=== PATIENT | male | born 1940 | race Caucasian/White ===

== ENCOUNTER 2017-02-22 09:59 | Emergency (ER) | payer MEDICARE ==
[2016-06-17 09:07] VITALS: BMI 34.3
[~2017-02-22 09:59] MED LIST: ASPIRIN81 MG PO; CORDARONE200 MG PO; ELIQUIS5 MG PO; FLOMAX0.4 MG PO; HEMOCYTE PLUS C1 CAP PO; K-DUR20 MEQ PO; LOPRESSOR25 MG PO; MAXZIDE-25 MG T1 TAB PO; ULTRAM50 MG PO; XALATAN 0.0052.5 ML EACH EYE
[2017-02-22 10:59] LABS: BASOPHILS 0.3 % (0-2); EOSINOPHILS 1.4 % (0-7); HEMATOCRIT 48.2 % (42.0-54.0); HEMOGLOBIN 16.2 g/dL (13.5-17.5); IMMATURE GRANULOCYTES 0.2 % (0-5); LYMPHOCYTES 21.5 % (15-50); MCH 28.8 pg (26.0-34.0); MCHC 33.6 g/dL (31.0-37.0); MCV 85.8 fL (80.0-100.0); MEAN PLATELET VOLUME 9.5 fL (7.4-10.4); MONOCYTES 9.5 % (2-11); NEUTROPHILS 67.1 % (40-80); PLATELET COUNT 188 10x3/uL (130-400); RBC 5.62 10x6/uL (4.20-6.10); RDW 14.7 % (11.5-14.5); WBC 8.8 10x3/uL (4.8-10.8)
[2017-02-22 11:25] LABS: ALBUMIN 3.7 g/dL (3.4-5.0); ALKALINE PHOSPHATASE 130 U/L (46-116); ALT (SGPT) 22 U/L (10-68); BILIRUBIN - TOTAL 0.92 mg/dL (0.2-1.3); CALC OSMOLALITY 282 mosm/kg (275-300); CALCIUM 8.7 mg/dL (8.5-10.1); CARBON DIOXIDE 28.5 mmol/L (21.0-32.0); CHLORIDE - SERUM 105 mmol/L (98-107); GLUCOSE 103 mg/dL (74-106); POTASSIUM - SERUM 4.2 mmol/L (3.5-5.1); SODIUM 142 mmol/L (136-145); UREA NITROGEN 13 mg/dL (7-18); eGFR NON AFRICAN AMERICAN 77 mL/min (90-120)
[2017-02-22 11:29] LABS: CREATINE KINASE 67 UL (21-232)
[2017-02-22 11:31] LABS: TROPONIN-I < 0.017 ng/mL (0.000-0.060)
== END 2017-02-22 15:10 | disposition home or self-care (01) ==
LOC: D.ER 09:59
PROVIDERS: Emergency Medicine
DX: M54.9 Dorsalgia, unspecified (principal)

== ENCOUNTER 2018-07-12 17:50 | Observation (INO) | payer MEDICARE ==
[~2018-07-12] VITALS: Ht 185.4 cm; Wt 96.0 kg
--- NOTE | ~2018-07-12 | OP ---
PATIENT NAME: EVELIN NAM MEDICAL RECORD: [id number] :40 LOCATION:D.M2 D.2102 ADMISSION DATE:07/12/18 SURGEON: MARILYN LANDON MD DATE OF OPERATION: 07/13/2018 PROCEDURES: 1. PTCA stent left circumflex. 2. Left heart catheterization. 3. Selective coronary angiography. 4. Vein graft angiography. 5. ALLEN angiography. INDICATION: Angina and coronary artery disease. PROCEDURE IN DETAIL: After informed consent was obtained and after a detailed description of risks, benefits as well as alternative therapies, the patient elected to proceed with angiogram and angioplasty. The right femoral area was prepped and draped in normal sterile fashion. The right femoral artery was cannulated via modified Seldinger technique with placement of 6-Korean sheath. All catheters exchanged through this sheath. FINDINGS: The left ventriculogram was performed in standard 30-degree MTZ view, reveals good cardiac wall motion throughout all segments. Overall ejection fraction estimated 60%. SELECTIVE CORONARY ANGIOGRAPHY: 1. Left main has no significant angiographic disease. 2. Left anterior descending has 80% stenosis in the mid vessel, 100% stenosis of the diagonal. 3. ALLEN to the LAD is widely patent. Distal LAD is widely patent. 4. Vein graft to the diagonal is widely patent. The distal diagonal is widely patent. 5. The left circumflex has 70% stenosis of the first obtuse marginal. 6. Vein graft to the first obtuse marginal was closed. 7. Right coronary artery is small, nondominant. PTCA STENT OF THE LEFT CIRCUMFLEX FIRST OBTUSE MARGINAL: The stent used was a 3.0 x 15 mm Integrity. Result was 0% residual stenosis. OVERALL IMPRESSION: Successful percutaneous transluminal coronary angioplasty stent of the left circumflex going from 70% initial stenosis to 0% residual. TRANSINT:[id number] Voice Confirmation ID: [id number] DOCUMENT ID: [id number] MARILYN LANDON MD at 1729 CC: [id number] DICTATION DATE: 07/13/18 1304 MASTER GLAZIER: 07/13/18 1313 DIS IN 07/13/18 [address] [place] [address]
--- NOTE | ~2018-07-12 | HEMODYNAMI ---
PATIENT:EVELIN NAM MEDICAL RECORD: [id number] : 40 [id number] ADMISSION DATE: 07/12/18 Generatedon:07/13/201813:01 Patient name: EVELIN NAM Patient #: [id number] SSN: : 1940 Date of study: 07/13/2018 Page: Of Hemodynamic Procedure Report Patient Data Patient Demographics Procedure consent was obtained First Name: EVELIN Gender: Male Last Name: CYRIL : 1940 Middle Initial: W Age: 77 year(s) Patient #: [id number] Race: Additional ID: [id number] Contact details [address]: [address] [place] [address] State: [place] City: [place] Zip code: [address] Past Medical History Allergies: No known allergies Admission Admission Data Admission Date: 07/12/2018 Admission Time: 21:02 Admit Source: Other Room #: D.2102 Lab Results Lab Result Date: 07/13/2018 Lab Result Time: 5:32 Biochemistry Name Units Result Min Max BUN mg/dl 12 --(-*--)-- 7 18 Creatinine mg/dl 0.9 --(-*--)-- 0.6 1.3 CBC Name Units Result Min Max Hematocrit % 41.3 -*(----)-- 42 54 Hemoglobin g/dl 13.9 --(*---)-- 13.5 17.5 Procedure Procedure Types Cath Procedure Diagnostic Procedure LHC LHC w/Coronaries w/Grafts PCI Procedure Coronary Stent Coronary Stent Initial Procedure Description Procedure Date Procedure Date: 07/13/2018 Procedure Start Time: 12:44 Procedure End Time: 12:59 Procedure Staff Name Function Silviano Justice MD Performing Physician Ravin Neumann RT Monitor Yuliya Campuzano RT Scrub Osmel Zimmerman RN Nurse Procedure Data Cath Procedure Fluoroscopy Diagnostic fluoroscopy Total fluoroscopy Time: 3.6 time: 3.6 min min Diagnostic fluoroscopy Total fluoroscopy dose: 880 dose: 880 mGy mGy Contrast Material Contrast Material Type Amount (ml) Isovue 300 109 Entry Location Entry Primary Successful Side Size Upsize Upsize Entry Closure Succes sful Closure Location (Fr) 1 (Fr) 2 (Fr) Remarks Device Remarks Femoral Right 5 Fr 6 Fr Exoseal artery Short Estimated blood loss: 10 ml Diagnostic catheters Device Type Used For End Catheter Placement MULTIPACK Pigtail 5 Fr Procedure catheter MULTIPACK JL 4.0 5Fr Procedure catheter MULTIPACK 3DRC 5Fr Procedure catheter Procedure Complications No complications Procedure Medications Medication Administration Route Dosage Oxygen etCO2 Nasal cannula 2 l/min Heparin Flush Bag added to field 2 bags (1000units/500ml NS) 0.9% NaCl I.V. 100 ml/hr Fentanyl I.V. 50 mcg Versed I.V. 1 mg Heparin Bolus I.V. 4000 units Fentanyl I.V. 50 mcg Versed I.V. 1 mg Hemodynamics Rest HGB: 13.9 (g/dl) Heart Rate: 64 (bpm) Snapshots Pre Cath Intra NCS Post Cath Vital Signs Time Heart Resp SPO2 etCO2 NIBP (mmHg) Rhythm Pain Sedation Rate (ipm) (%) (mmHg) Status Level (bpm) 12:33:05 64 17 98 31.4 170/76(134) NSR 0 (11) 10(A) , No pain 12:37:31 62 17 99 33.7 160/70(131) NSR 0 (11) 10(A) , No pain 12:42:00 60 16 95 0 147/64(112) NSR 0 (11) 10(A) , No pain 12:46:22 62 16 93 0 146/66(108) NSR 0 (11) 9(A) , No pain 12:50:46 63 16 93 0 140/61(103) NSR 0 (11) 9(A) , No pain 12:55:06 62 16 95 0 148/63(107) NSR 0 (11) 9(A) , No pain 12:59:30 62 17 96 0 140/61(111) NSR 0 (11) 9(A) , No pain Medications Time Medication Route Dose Verified Delivered Reason Notes Effectiveness by by 12:31:56 Oxygen etCO2 2 Silviano Bolivar Per physician Nasal l/min Vinh Zimmerman RN cannula 12:32:04 Heparin Flush added 2 Silviano Bolivar Per physician Bag to bags Vinh Zimmerman RN (1000units/500ml field NS) 12:32:17 0.9% NaCl I.V. 100 Silviano Bolivar Per physician ml/hr Vinh Zimmerman RN 12:42:49 Fentanyl I.V. 50 Silviaon Bolivar for sedation mcg Vinh Zimmerman RN 12:42:56 Versed I.V. 1 mg Silviano Bolivar for sedation Vinh Zimmerman RN 12:53:30 Heparin Bolus I.V. 4000 Silviano Bolivar for units Vinh Zimmerman RN anticoagulation 12:53:38 Fentanyl I.V. 50 Silviano Bolivar for sedation mcg Vinh Zimmerman RN 12:53:42 Versed I.V. 1 mg Silviano Bolivar for sedation Vinh Zimmerman RN Procedure Log Time Note 12:10:41 Osmel Zimmerman RN sent for patient. Start room use. 12:20:25 Informed consent obtained and on chart 12:20:27 Admit Source: Other 12:20:39 Diagnostic Cath status Elective 12:20:42 Time tracking: Regular hours (M-F 7:00 - 5:00) 12:20:45 Plan of Care:Hemodynamics will remain stable., Cardiac rhythm will remain stable., Comfort level will be maintained., Respiratory function will remain adequate., Patient/ family verbilizes understanding of procedure., Procedure tolerated without complication., Recovers from procedure without complications.. 12:21:39 Lab Result : Hemoglobin 13.9 g/dl 12:21:39 Lab Result : Hematocrit 41.3 % 12:21:39 Lab Result : BUN 12 mg/dl 12:21:39 Lab Result : Creatinine 0.9 mg/dl 12:23:34 H&P Date Dictated: 07/12/2018 Within 30 days and on chart.. 12:24:15 Patient received from Med II to CCL 2 Alert and oriented. Tansferred to table in Supine position. 12:24:16 Warm blankets applied, and elda hugger turned on for patient comfort. 12:24:17 Correct patient and procedure confirmed by team. 12:24:17 ECG and BP/O2 sat monitors applied to patient. 12:24:18 Pre-procedure instructions explained to patient. 12:24:18 Pre-op teaching completed and patient verbalized understanding. 12:24:19 Family in waiting room. 12:24:21 Patient NPO since Midnight. 12:24:27 Patient allergic to No known allergies 12::47 Vital chart was started 12::56 Oxygen 2 l/min etCO2 Nasal cannula was administered by Osmel Zimmerman RN; Per physician; 12:32:04 Heparin Flush Bag (1000units/500ml NS) 2 bags added to field was administered by Osmel Zimmerman RN; Per physician; 12:32:17 0.9% NaCl 100 ml/hr I.V. was administered by Osmel Zimmerman RN; Per physician; 12:35:50 Baseline sample Acquired. 12:35:55 Rhythm: sinus rhythm 12:35:56 Full Disclosure recording started 12:35:59 Is the patient allergic to Iodine/contrast media? No. 12:36:01 Patient diabetic? No. 12:36:03 Previous problem with sedation/anesthesia? No ? 12:36:04 Snore? No 12:36:05 Sleep apnea? No 12:36:06 Deviated septum? No 12:36:07 Opens mouth fully? Yes 12:36:07 Sticks out tongue? Yes 12:36:09 Airway obstruction? No ? 12:36:12 Dentures? Yes in tight 12:36:14 Pre procedure: right dorsailis pedis pulse 2+ Normal; easily identifiable; not easily obliterated 12:36:16 Patient pain scale 0/10 ?. 12:36:19 IV patent on arrival in left forearm with 0.9% NaCl at [facility]. 12:36:21 Lab results completed and on chart. 12:36:24 Right groin area was prepped with chlora-prep and draped in sterile fashion 12:36:24 Alarms reviewed by R. N. 12:36:25 Sharps counted by scrub and verified by R.N. 12:36:27 Use device set Femoral Dx 12:36:28 ACIST Syringe (18036) opened to sterile field. 12:36:28 Bag Decanter () opened to sterile field. 12:36:30 Medline Cath Pack ([id number]) opened to sterile field. 12:36:30 ACIST Hand Control (55765) opened to sterile field. 12:36:31 ACIST Manifold (60443) opened to sterile field. 12:36:32 Tegaderm 4 x 4 (1626W) opened to sterile field. 12:36:33 SHEATH Prelude 5Fr 0.035 (KXQ-6E-18-035) opened to sterile field. 12:36:34 DIAGNOSTIC Multipack 5Fr catheter set (XV6880) opened to sterile field. 12:36:34 DIAGNOSTIC WIRE .035 260cm J wire (932339) opened to sterile field. 12:36:42 Physician arrived 12::42 --------ALL STOP TIME OUT------ 12:36:43 Final Timeout: patient, procedure, and site verified with staff and physician. All members of the team are in agreement. 12:36:45 Right groin site verified by team. 12:36:47 Physical assessment completed. ASA score P 2 - A patient with mild systemic disease as per Silviano Justice MD. 12:36:48 Sedation plan: IV Moderate Sedation Medication:Versed, Fentanyl 12:42:49 Fentanyl 50 mcg I.V. was administered by Osmel Zimmerman RN; for sedation; 12:42:56 Versed 1 mg I.V. was administered by Osmel Zimmerman RN; for sedation; 12:44:46 Procedure started. 12:44:49 Local anesthetic to right femoral artery with Lidocaine 2% by Silviano Justice MD.INITIAL ACCESS ONLY 12:45:09 A 5 Fr sheath was inserted into the Right Femoral artery 12:45:33 A MULTIPACK Pigtail 5 Fr catheter was advanced over the wire and used for Procedure. 12:45:34 Zero performed for pressure channel P1 12:45:39 Zero performed for pressure channel P1 12:45:48 LV gram done using MTZ 12:45:50 Injector settings: Ml/sec: 10, Volume: 20, 12:45:56 EF : 55 % 12:45:58 Zero performed for pressure channel P1 12:46:01 Zero performed for pressure channel P1 12:46:11 Catheter exchanged over wire. 12:46:16 A MULTIPACK JL 4.0 5Fr catheter was advanced over the wire and used for Procedure. 12:46:54 LCA angiography performed. 12:47:57 Catheter exchanged over wire. 12:48:03 A MULTIPACK 3DRC 5Fr catheter was advanced over the wire and used for Procedure. 12:48:25 ALLEN to LAD angiography performed. 12:49:10 RCA angiography performed. 12:49:29 SVG to Diag angiography performed. 12:52:55 Catheter removed. 12:53:08 CHOICE PT Extra Support 182cm wire ([id number]) opened to sterile field. 12:53:09 INFLATOR Merit BasixCompak (WO8817) opened to sterile field. 12:53:10 SHEATH Prelude 6Fr 0.035 (NXW-6X-99-035) opened to sterile field. 12:53:18 GUIDE 6FR XBLAD 3.5 catheter ([id number]) opened to sterile field. 12:53:26 Sheath upsized to a 6 Fr Short. 12:53:30 Heparin Bolus 4000 units I.V. was administered by Osmel Zimmerman RN; for anticoagulation; 12:53:33 6 Fr xblad 3.5 guide catheter was inserted over the wire 12:53:36 choice pt es wire advanced. 12:53:38 Fentanyl 50 mcg I.V. was administered by Osmel Zimmerman RN; for sedation; 12:53:42 Versed 1 mg I.V. was administered by Osmel Zimmerman RN; for sedation; 12:55:12 Wire advanced across lesion. 12:56:06 Place stent Inflation Number: 1 A INTEGRITY RX 3.0 x 15 stent ([id number]) was prepped and advanced across the 1st Ob Halina. The stent was deployed at 13 AURELI[address]O for 0:10 (min:sec). 12:56:29 Stent catheter was removed intact over wire. 12:56:29 Wire removed. 12:56:30 Guide catheter removed. 12:56:35 EXOSEAL 6Fr (EX600) opened to sterile field. 12:56:41 Sheath removed intact; hemostasis achieved with Exoseal to the Right Femoral artery. 12:56:42 Procedure ended.(Physican Out) 12:58:08 Fluoroscopy time 03.60 minutes. 12:58:14 Flurop Dose total: 880 12:58:14 Fluoroscopy dose: 880 mGy 12:58:18 Contrast amount:Isovue 300 109ml. 12:58:19 Sharps counted by scrub and verified by R.N. 12:58:20 Insertion/operative site no bleeding no hematoma. 12:58:25 Post-op/insertion site Right Femoral artery dressed using a 4 x 4 and Tegaderm. 12:58:45 Post right femoral artery:stable, soft, clean and dry 12:58:47 Post Procedure Pulses reassessed and unchanged 12:58:49 Post-procedure physical assessment completed. ASA score P 2 - A patient with mild systemic disease as per Silviano Justice MD. 12:58:50 Post procedure rhythm: unchanged. 12:58:53 Estimated blood loss: 10 ml 12:58:54 Post procedure instruction explained to patient.Patient verbalizes understanding. 12:58:54 Patient needs reinforcement of post procedure teaching. 12:59:03 Procedure type changed to Cath procedure, Diagnostic procedure, LHC, LHC w/Coronaries w/Grafts, PCI procedure, Coronary Stent, Coronary Stent Initial 12:59:31 Procedure and supply charges have been captured, reviewed, submitted and are correct. 12:59:32 Procedure Complication : No complications 12:59:34 Vital chart was stopped 12:59:35 See physician's report for complete and final results. 12:59:36 Report given to PCU. 12:59:51 Patient transfered to PCU with Stretcher. 12:59:54 Procedure ended. 12:59:54 Full Disclosure recording stopped 13:00:04 End room use (Document Last) Intervention Summary Intervention Notes Time ActionType Lesion and Equipment Action# Pressure Duration Attributes Used 12:56:06 Place stent 1st Ob Halina INTEGRITY RX 1 13 00:10 3.0 x 15 stent ([id number]) Device Usage Item Name Manufacture Quantity Catalog Number Hospital Part Current Minimal Lot# / Charge Number Stock Stock Serial# Code ACIST Syringe Acist 1 70262 218372 975435 267580 20 (79989) [employer] Bag Decanter Microtek 1 2001S 885301 86492 214160 5 (2001S) Medical Inc. Medline Cath Cardinal 1 [id number] 641609 26355 367649 5 Pack Health ([id number]) ACIST Hand Acist 1 21053 811005 762425 908543 5 Control (40003) [employer] Inc ACIST Manifold Acist 1 34247 900567 875362 642554 5 (05258) Medical Systems Inc Tegaderm 4 x 4 3M 1 1626W 743190 289820 335804 5 (1626W) SHEATH Prelude Merit 1 [id number]-0L-[id number] 307734 316608 087151 5 5Fr 0.035 Medical (KWH-1S-48-035) DIAGNOSTIC Cardinal 1 AI9073 479476 69965 481574 30 Multipack 5Fr Health catheter set ([id number]) DIAGNOSTIC WIRE St Brock 1 749518 568860 394733 447204 30 .035 260cm J wire (975039) MULTIPACK Cardinal 1 833780 5 Pigtail 5 Fr Health catheter MULTIPACK JL Cardinal 1 955428 5 4.0 5Fr Health catheter MULTIPACK 3DRC Cardinal 1 473415 5 5Fr catheter Health CHOICE PT Extra [place] 1 [id number] 041609 782270 902150 5 Support 182cm Scientific wire ([id number]) INFLATOR Merit Merit 1 HE1778 385275 191735 371634 15 BasixProperty Partner Medical ([id number]) SHEATH Prelude Merit 1 OFW-6W-34-35 043087 9519022 896980 5 6Fr 0.035 Medical (EDC-8O-35-035) GUIDE 6FR XBLAD Cardinal 1 [id number] 160887 304495 216842 10 3.5 catheter Health (17861718) INTEGRITY RX Medtronic 1 [id number] 202032 967529 718117 5 [id number] 3.0 x 15 stent ([id number]) EXOSEAL 6Fr Cardinal 1 EX600 538894 916320 857501 10 (EX600) Health Signature Audit [place] Stage Time Signature Unsigned Intra-Procedure 07/13/2018 Ravin Neumann 1:01:06 PM RT(R) Signatures Monitor : Ravin Neumann RT Signature : Date : Time : [facility] [address] [place] [address]
[2018-07-12 18:35] LABS: BASOPHILS 0.4 % (0-2); EOSINOPHILS 2.4 % (0-7); HEMATOCRIT 44.9 % (42.0-54.0); HEMOGLOBIN 15.5 g/dL (13.5-17.5); IMMATURE GRANULOCYTES 0.1 % (0-5); LYMPHOCYTES 22.2 % (15-50); MCHC 34.5 g/dL (31.0-37.0); MCV 86.8 fL (80.0-100.0); MEAN PLATELET VOLUME 9.2 fL (7.4-10.4); MONOCYTES 9.3 % (2-11); NEUTROPHILS 65.6 % (40-80); PLATELET COUNT 166 10x3/uL (130-400); RBC 5.17 10x6/uL (4.20-6.10); RDW 13.7 % (11.5-14.5); WBC 7.4 10x3/uL (4.8-10.8)
[2018-07-12 18:50] LABS: ALBUMIN 3.2 g/dL (3.4-5.0); ALKALINE PHOSPHATASE 105 U/L (46-116); ALT (SGPT) 25 U/L (10-68); BILIRUBIN - TOTAL 0.74 mg/dL (0.2-1.3); CALC OSMOLALITY 287 mosm/kg (275-300); CALCIUM 8.6 mg/dL (8.5-10.1); CARBON DIOXIDE 29.1 mmol/L (21.0-32.0); CHLORIDE - SERUM 106 mmol/L (98-107); CREATININE - SERUM 1.1 mg/dL (0.6-1.3); GLUCOSE 111 mg/dL (74-106); POTASSIUM - SERUM 3.8 mmol/L (3.5-5.1); PROTEIN - SERUM 6.7 g/dL (6.4-8.2); SODIUM 144 mmol/L (136-145); UREA NITROGEN 12 mg/dL (7-18); eGFR NON AFRICAN AMERICAN 69 mL/min (90-120)
[2018-07-12 19:11] LABS: CKMB 1.2 U/L (0.0-3.6); CREATINE KINASE 37 UL (21-232); PRO BNP 192 pg/mL (0-450)
[2018-07-12 19:12] LABS: TROPONIN-I < 0.017 ng/mL (0.000-0.060)
[2018-07-12 19:30] VITALS: BP 145/73
[2018-07-12 20:30] VITALS: BP 165/73
[2018-07-12 21:00] VITALS: BP 155/72
[2018-07-12 22:09] VITALS: BP 177/78
[2018-07-13 00:57] VITALS: BP 134/59
[2018-07-13 01:23] VITALS: Ht 185.4 cm; Wt 96.0 kg
[2018-07-13 02:32] LABS: CKMB 0.7 U/L (0.0-3.6); CREATINE KINASE 41 UL (21-232); TROPONIN-I < 0.017 ng/mL (0.000-0.060)
[2018-07-13 05:51] VITALS: BP 134/60
[2018-07-13 06:02] LABS: BASOPHILS 0.5 % (0-2); EOSINOPHILS 3.3 % (0-7); HEMATOCRIT 41.3 % (42.0-54.0); HEMOGLOBIN 13.9 g/dL (13.5-17.5); IMMATURE GRANULOCYTES 0.2 % (0-5); LYMPHOCYTES 25.6 % (15-50); MCH 29.3 pg (26.0-34.0); MCHC 33.7 g/dL (31.0-37.0); MCV 87.1 fL (80.0-100.0); MEAN PLATELET VOLUME 9.6 fL (7.4-10.4); NEUTROPHILS 58.4 % (40-80); PLATELET COUNT 165 10x3/uL (130-400); RBC 4.74 10x6/uL (4.20-6.10); RDW 13.8 % (11.5-14.5); WBC 6.4 10x3/uL (4.8-10.8)
[2018-07-13 07:40] LABS: CALC OSMOLALITY 280 mosm/kg (275-300); CALCIUM 7.9 mg/dL (8.5-10.1); CARBON DIOXIDE 28.2 mmol/L (21.0-32.0); CHLORIDE - SERUM 108 mmol/L (98-107); CKMB 0.7 U/L (0.0-3.6); CREATINE KINASE 30 UL (21-232); CREATININE - SERUM 0.9 mg/dL (0.6-1.3); GLUCOSE 95 mg/dL (74-106); POTASSIUM - SERUM 3.8 mmol/L (3.5-5.1); SODIUM 141 mmol/L (136-145); TROPONIN-I < 0.017 ng/mL (0.000-0.060); UREA NITROGEN 12 mg/dL (7-18); eGFR NON AFRICAN AMERICAN 87 mL/min (90-120)
[2018-07-13 11:02] VITALS: BP 127/62
[2018-07-13] MEDS ORDERED: PLAVIX75 MG PO (13:48)
[2018-07-13 15:23] LABS: CKMB 0.6 U/L (0.0-3.6); CREATINE KINASE 26 UL (21-232)
[2018-07-13 15:27] LABS: TROPONIN-I < 0.017 ng/mL (0.000-0.060)
== END 2018-07-13 16:42 | disposition home or self-care (01) ==
LOC: D.ER 17:50 → D.EDHOLD 21:02 → D.M2 21:02 → OBSVTIME 21:02 → D.M2 22:48
PROVIDERS: Family Medicine
DX: I25.119 Atherosclerotic heart disease of native coronary artery with unspecified angina pectoris (principal); Z95.1 Presence of aortocoronary bypass graft; Z72.0 Tobacco use; I10 Essential (primary) hypertension; K21.9 Gastro-esophageal reflux disease without esophagitis; I48.0 Paroxysmal atrial fibrillation

== ENCOUNTER → 2020-05-08 09:06 | Outpatient (CLI) | payer MEDICARE ==
[~2020-05-08 09:06] MED LIST changes: +PLAVIX75 MG PO
== END | disposition home or self-care (01) ==
LOC: D.HCCARDIO 09:06
PROVIDERS: ATTEND Internal Medicine Cardiovascular Disease
DX: I25.10 Atherosclerotic heart disease of native coronary artery without angina pectoris (principal)

== ENCOUNTER 2020-05-29 05:55 | Day surgery (SDC) | payer MEDICARE ==
[~2020-05-29] VITALS: Ht 185.4 cm; Wt 100.5 kg
--- NOTE | ~2020-05-29 | HEMODYNAMI ---
PATIENT:EVELIN NAM MEDICAL RECORD: [id number] : 40 LOCATION:D.CAT ADMISSION DATE: 05/29/20 Generatedon:05/29/20209:14 Patient name: EVELIN NAM Patient #: [id number] : 1940 Date of study: 05/29/2020 Page: Of Hemodynamic Procedure Report Patient Data Patient Demographics Procedure consent was obtained First Name: EVELIN Gender: Male Last Name: CYRIL : 1940 Middle Initial: W Age: 79 year(s) Patient #: [id number] Race: SSN: [id number] Additional ID: [id number] Contact details Address: [address] [place] [address] State: [place] City: [place] Zip code: [address] Past Medical History Allergies Allergen Reaction Date Comments Reported Other allergy 05/29/2020 no known allergies Admission Admission Data Admission Date: 05/29/2020 Admission Time: 5:55 Arrival Date: 05/29/2020 Arrival Time: 0:00 Admit Source: Other Insurance Payor: Medicare [facility] #: [id number] Height (in.): 73 BSA: 2.25 (m2) Height (cm.): 185.42 BMI: 29.29 (kg/m2) Weight (lbs.): 222 Weight (kg.): 100.7 Lab Results Lab Result Date: 05/29/2020 Lab Result Time: 0:00 Biochemistry Name Units Result Min Max BUN mg/dl 15 --(--*-)-- 7 18 Creatinine mg/dl 1 --(--*-)-- 0.6 1.3 eGFR ml/min 76.18419 *-(----)-- 90 120 NONAFRICAN CBC Name Units Result Min Max Hemoglobin g/dl 15.4 --(-*--)-- 13.5 17.5 Procedure Procedure Types Cath Procedure Diagnostic Procedure LHC LHC w/Coronaries w/Grafts Sedation Charges Moderate Sedation up to 15 minutes Procedure Description Procedure Date Procedure Date: 05/29/2020 Procedure Start Time: 8:52 Procedure End Time: 9:12 Procedure Staff Name Function Qasim Stafford MD Performing Physician Beatriz Ledesma RT Plastering Contractor Dulce Higgins RN Nurse Beatriz Ledesma RT Monitor Amanda Rivera RT Scrub Indication Angina Procedure Data Cath Procedure Contrast Material Contrast Material Type Amount (ml) Isovue 300 64 Entry Location Entry Primary Successful Side Size Upsize Upsize Entry Closure Succes sful Closure Location (Fr) 1 (Fr) 2 (Fr) Remarks Device Remarks Femoral Right 5 Fr Exoseal artery Estimated blood loss: 5 ml Diagnostic catheters Device Type Used For End Catheter Placement MULTIPACK JL 4.0 5Fr Left Coronary catheter Angiography DIAGNOSTIC AR MOD 5Fr Procedure Catheter ([id number]) DIAGNOSTIC IM 5Fr Procedure catheter ([id number]) MULTIPACK Pigtail 5 Fr LV Angiography catheter Procedure Complications No complications Procedure Medications Medication Administration Route Dosage 0.9% NaCl I.V. 100 ml/hr Oxygen etCO2 Nasal cannula 2 l/min Lidocaine 2% added to field 20 Heparin Flush Bag added to field 2 bags (1000units/500ml NS) Versed I.V. 2 mg Fentanyl I.V. 50 mcg Hemodynamics Rest BSA: 2.25 (m2) HGB: 15.4 (g/dl) O2 Consumption: Estimated: 247.29 (ml/min) O2 Co nsumption indexed: Estimated:109.91 (ml/min/m) Heart Rate: 58 (bpm) Pressure Samples Time Site Value (mmHg) Purpose Heart Use Rate(bpm) 9:05 LV 162/7,14 Snapshot 76 9:06 AO 162/61(101) Pullback 60 9:06 LV 172/-1,18 Pullback 60 Gradients Valve Time Site 1 Site 2 Mean SEP/DFP Peak To Heart Use (mmHg) (sec/min) Peak Rate (mmHg) (bpm) Aortic 9:06 LV AO 5 17 10 60 172/-1,18 162/61(101) Calculations Valve P-P Mean Valve Index Valve Source Name Gradient Area Flow (cm2) Aortic 10 5 10 5 Snapshots Pre Cath Intra NCS Post Cath Vital Signs Time Heart Resp SPO2 etCO2 NIBP (mmHg) Rhythm Pain Sedation Rate (ipm) (%) (mmHg) Status Level (bpm) 8:40:15 69 17 98 33 Measuring NSR 0 (11) 10(A) , No pain 8:45:55 62 14 98 21.7 157/68(121) NSR 0 (11) 10(A) , No pain 8:50:17 57 15 98 13.5 139/64(109) SB 0 (11) 10(A) , No pain 8:54:31 47 15 98 17.2 153/65(109) SB 0 (11) 9(A) , No pain 8:58:51 52 14 98 37.5 162/65(109) SB 0 (11) 9(A) , No pain 9:03:13 60 14 99 37.5 148/71(123) NSR 0 (11) 10(A) , No pain 9:07:25 60 14 99 36 157/83(132) NSR 0 (11) 10(A) , No pain 9:11:29 63 15 99 35.3 137/80(126) NSR 0 (11) 10(A) , No pain Medications Time Medication Route Dose Verified Delivered Reason Notes Effe ctiveness by by 8:36:06 0.9% NaCl I.V. 100 Qasim Dulce used for ml/hr Rivera Higgins budget counselor 8:36:12 Oxygen etCO2 2 Qasim Dulce used for Nasal l/min Rivera Higgins procedure cannula RN 8:36:17 Lidocaine 2% added 20ml Qasim Qasim for local to vial Rivera Stafford MD anesthetic field 8:36:21 Heparin Flush added 2 Qasim Qasim used for Bag to bags Rivera Stafford MD procedure (1000units/500ml field NS) 8:50:23 Versed I.V. 2 mg Qasim Dulce for Rivera Higgins sedation RN 8:50:27 Fentanyl I.V. 50 Qasim Dulce for mcg Rivera Higgins sedation structural designer Log Time Note 8:17:29 Arrival Date: 05/29/2020 12:00:00 AM 8:18:13 Insurance Payor : Medicare 8:18:14 Admit Source: Other 8:19:02 Patient Height : 73 inches 8:19:06 Patient Weight : 222 lbs 8:19:43 Lab Result : eGFR NONAFRICAN 76.38092 ml/min 8:19:43 Lab Result : Creatinine 1 mg/dl :: Lab Result : BUN 15 mg/dl :: Lab Result : Hemoglobin 15.4 g/dl 8::23 Diagnostic Cath Status : Elective 8:21:04 Indication : Angina 8::21 Procedure Status Elective Heart Cath (OP). 8::23 Beatriz Ledesma RT(R) (CV) sent for patient. Start room use. 8:21:24 Time tracking: Regular hours (M-F 7:00 - 5:00) 8:21:30 Plan of Care:Hemodynamics will remain stable., Cardiac rhythm will remain stable., Comfort level will be maintained., Respiratory function will remain adequate., Patient/ family verbilizes understanding of procedure., Procedure tolerated without complication., Recovers from procedure without complications.. 8:36:06 0.9% NaCl 100 ml/hr I.V. was administered by Dulce Higgins RN; used for procedure; Verbal order read back and verified. 8:36:12 Oxygen 2 l/min etCO2 Nasal cannula was administered by Dulce Higgins RN; used for procedure; Verbal order read back and verified. 8:36:17 Lidocaine 2% 20ml vial added to field was administered by Qasim Stafford MD; for local anesthetic; Verbal order read back and verified. 8:36:21 Heparin Flush Bag (1000units/500ml NS) 2 bags added to field was administered by Qasim Stafford MD; used for procedure; Verbal order read back and verified. 8:38:18 Patient received from Pre/Post Procedure Room to [facility] 2 Alert and oriented. Tansferred to table in Supine position. 8:38:22 Signed procedure consent form obtained from patient. 8:38:24 Warm blankets applied, and elda hugger turned on for patient comfort. 8:38:25 Correct patient and procedure confirmed by team. 8:38:25 ECG and BP/O2 sat monitors applied to patient. 8:38:26 Vital chart was started 8:38:56 Full Disclosure recording started 8:38:57 8:39:03 H&P Date Dictated: 05/29/2020 H&P Addendum completed by physician on day of procedure. (MUST COMPLETE FOR ALL OUTPATIENTS), New H&P dictated by physician.. 8:39:05 Pre-procedure instructions explained to patient. 8:39:06 Pre-op teaching completed and patient verbalized understanding. 8:39:08 Family in patients room. 8:39:10 Patient NPO since Midnight. 8:39:34 Patient allergic to Other allergyno known allergies 8:40:02 Is the patient allergic to Iodine/contrast media? No. 8:40:07 Was the patient premedicated? Yes 8:40:27 Is patient on blood thinner?No 8:40:33 Patient diabetic? No. 8:40:39 ----Pre-sedation anethsthesia assessment.---- 8:40:44 Previous problem with sedation/anesthesia? No ? 8:40:47 Snore? Yes 8:40:50 Sleep apnea? No 8:40:53 Deviated septum? Unknown 8:40:56 Opens mouth fully? Yes 8:40:59 Sticks out tongue? Yes 8:41:02 Airway obstruction? No ? 8:41:15 Dentures? Yes in tight 8:41:30 Pre procedure: right dorsailis pedis pulse 1+ Palpable, but thready & weak; easily obliterated 8:41:41 IV patent on arrival in left hand with 0.9% NaCl at KVO. 8:42:32 Lab results completed and on chart. 8:44:31 Stress Test: yes; abnormal inferior and lateral 8:44:38 Right groin area was prepped with chlora-prep and draped in sterile fashion 8:44:40 Alarms reviewed by R. N. 8:44:40 Sharps counted by scrub and verified by R.N. 8:44:49 Use device set Femoral Dx 8:44:51 ACIST Syringe (09733) opened to sterile field. 8:44:52 Bag Decanter () opened to sterile field. 8:44:54 Medline Cath Pack ([id number]) opened to sterile field. 8:44:56 ACIST Hand Control (42459) opened to sterile field. 8:44:56 ACIST Manifold (70140) opened to sterile field. 8:44:58 DIAGNOSTIC Multipack 5Fr catheter set ([id number]) opened to sterile field. 8:45:00 Tegaderm 4 x 4 (1626W) opened to sterile field. 8:45:05 SHEATH 5FR [place]ide (WBW211) opened to sterile field. 8:45:06 EMERALD Guide Wire (941-002) opened to sterile field. 8:49:10 Baseline sample Acquired. 8:49:23 Rhythm: sinus rhythm 8:49:34 Physician arrived 8:49:34 --------ALL STOP TIME OUT------ 8:49:35 Final Timeout: patient, procedure, and site verified with staff and physician. All members of the team are in agreement. 8:49:39 Right groin site verified by team. 8:49:44 Fire Safety Assessment: A--An alcohol-based skin anteseptic being used preoperatively., C--Open oxygen or nitrous oxide is being used., D--An ESU, laser, or fiber-optic light is being used. 8:49:49 Physical assessment completed. ASA score P 2 - A patient with mild systemic disease as per Qasim Stafford MD. 8:49:55 2) 60-89 Mildly reduced kidney function, and other findings (as for stage 1) point to kidney disease. 8:49:59 Maximum allowable contrast dose (3.7 X eGFR X 0.75)210 ml. 8:50:05 Sedation plan: IV Moderate Sedation Medication:Versed, Fentanyl 8:50:23 Versed 2 mg I.V. was administered by Dulce Higgins RN; for sedation; Verbal order read back and verified. 8:50:27 Fentanyl 50 mcg I.V. was administered by Dulce Higgins RN; for sedation; Verbal order read back and verified. 8:51:49 Zero performed for pressure channel P1 8:52:19 Procedure started. 8:52:23 Zero performed for pressure channel P1 8:52:37 Local anesthetic to right femoral artery with Lidocaine 2% by Qasim Stafford MD.INITIAL ACCESS ONLY 8:54:10 A 5 Fr sheath was inserted into the Right Femoral artery 8:54:36 A MULTIPACK JL 4.0 5Fr catheter was advanced over the wire and used for Left Coronary Angiography. 8:55:36 LCA angiography performed. 8:55:44 Injector settings: Ml/sec: 3, Volume: 6, 8:56:46 Catheter removed. 8:58:05 A DIAGNOSTIC AR MOD 5Fr Catheter ([id number]) was advanced over the wire and used for Procedure. 8:58:10 RCA angiography performed. 8:58:18 Injector settings: Ml/sec: 3, Volume: 6, 9:01:06 SVG to Diag angiography performed. 9:01:11 Injector settings: Ml/sec: 3, Volume: 6, 9:01:24 Catheter removed. 9:02:35 A DIAGNOSTIC IM 5Fr catheter ([id number]) was advanced over the wire and used for Procedure. 9:03:15 Injector settings: Ml/sec: 3, Volume: 6, 9:03:44 ALLEN to LAD angiography performed. 9:03:53 SVG to OM occluded. 9:04:46 Catheter removed. 9:04:54 A MULTIPACK Pigtail 5 Fr catheter was advanced over the wire and used for LV Angiography. 9:05:25 LV gram done using MTZ 9:05:43 Injector settings: Ml/sec: 5, Volume: 15, 9:05:57 EF : 60 % 9:06:12 LV hemodynamics recorded. 9:06:39 EXOSEAL 5Fr (EX500) opened to sterile field. 9:06:57 Catheter removed. 9:07:24 Sheath removed intact; hemostasis achieved with Exoseal to the Right Femoral artery. 9:09:07 Procedure ended.(Physican Out) 9:09:39 Risk of Mortality: 0.1 9:09:43 Risk of blood transfusion: 0.2 9:09:47 Risk of BELEM: 0.2 9:10:01 Contrast amount:Isovue 300 64ml. 9:10:23 Dose Area Product 70345 mGy/cm. 9:10:26 Maximum allowable dose exceeded? No. 9:10:27 Sharps counted by scrub and verified by R.N. 9:10:29 Insertion/operative site no bleeding no hematoma. 9:10:34 Post-op/insertion site Right Femoral artery dressed using a 4 x 4 and Tegaderm. 9:10:41 Post-procedure physical assessment completed. ASA score P 2 - A patient with mild systemic disease as per Qasim Stafford MD. 9:10:46 Post procedure rhythm: unchanged. 9:10:57 Estimated blood loss: 5 ml 9:10:58 Post procedure instruction explained to patient.Patient verbalizes understanding. 9:10:59 Patient needs reinforcement of post procedure teaching. 9:11:28 Procedure type changed to Cath procedure, Diagnostic procedure, LHC, LHC w/Coronaries w/Grafts, Sedation Charges, Moderate Sedation up to 15 minutes 9:11:34 Procedure and supply charges have been captured, reviewed, submitted and are correct. 9:12:08 Procedure Complication : No complications 9:12:13 Vital chart was stopped 9:12:16 Operative report dictated upon procedure completion. 9:12:17 See physician's report for complete and final results. 9:12:21 Report given to Pre/Post Procedure Room. 9:12:27 Patient transfered to Pre/Post Procedure Room with Stretcher. 9:12:31 Procedure ended. 9:12:31 Full Disclosure recording stopped Device Usage Item Name Manufacture Quantity Catalog Hospital Part Current Minimal L ot# / Number Charge Number Stock Stock Serial# Code ACIST Acist 1 24542 161916 612298 912520 20 Syringe Medical (05893) Systems Inc Bag Microtek 1 2001S 122749 09885 724084 5 Decanter Medical Inc. () Medline Medline 1 [id number] 179831 07276 231552 5 Cath Pack ([id number]) ACIST Hand Acist 1 51073 757574 556163 200998 5 Control Medical (17300) Systems Inc ACIST Acist 1 16154 674780 101683 870908 5 Manifold Medical (80479) Systems Inc DIAGNOSTIC Cardinal 1 [id number] 890699 26584 724108 30 Multipack CorTec 5Fr catheter set (SM4868) Tegaderm 4 3M 1 1626W 815923 859828 419036 5 x 4 (1626W) SHEATH 5FR Terumo 1 IGS891 926630 255784 632105 5 [place] (SAH474) EMERALD Cardinal 1 502-455 341045 792527 855014 5 Guide Wire CorTec (502455) MULTIPACK Cardinal 1 819092 5 JL 4.0 5Fr Health catheter DIAGNOSTIC Cardinal 1 [id number] 707682 704481 443977 15 AR MOD 5Fr Health Catheter (262290K) DIAGNOSTIC Cardinal 1 [id number] 021200 382315 048293 5 IM 5Fr Health catheter (762981O) MULTIPACK Cardinal 1 077654 5 Pigtail 5 Health Fr catheter EXOSEAL 5Fr Cardinal 1 EX500 415970 221248 004016 10 (EX500) Health Signature Audit [place] Stage Time Signature Unsigned Intra-Procedure 05/29/2020 Beatriz 9:13:01 AM Callie ABRAHAM(R) (CV) Intra-Procedure 05/29/2020 Dulce Higgins 9:13:37 AM RN Intra-Procedure 05/29/2020 Qasim Stafford MD 9:14:07 AM Signatures Performing Physician : Signature : Qasim Stafford MD Date : Time : Nurse : Dulce Higgins RN Signature : Date : Time : Monitor : Beatriz Signature : Callie RT Date : Time : [address] [place] [address]
[2020-05-29] MEDS ORDERED: NORVASC5 MG PO (06:25)
[2020-05-29] MEDS ORDERED: BETAPACE 80 MG80 MG PO (06:25)
[2020-05-29] MEDS ORDERED: VITAMIN C500 M1 PO (06:26)
[2020-05-29 07:25] VITALS: BP 168/71; Ht 185.4 cm; Wt 100.5 kg
[2020-05-29 07:41] LABS: CALC OSMOLALITY 285 mosm/kg (275-300); CALCIUM 8.9 mg/dL (8.5-10.1); CARBON DIOXIDE 29.8 mmol/L (21.0-32.0); CHLORIDE - SERUM 109 mmol/L (98-107); GLUCOSE 105 mg/dL (74-106); POTASSIUM - SERUM 3.9 mmol/L (3.5-5.1); SODIUM 143 mmol/L (136-145); UREA NITROGEN 15 mg/dL (7-18); eGFR NON AFRICAN AMERICAN 76 mL/min (90-120)
[2020-05-29 07:49] LABS: CHOL - HDL RATIO 3.4 ratio (2.3-4.9); LDL-HDL RATIO 1.9 ratio (1.5-3.5)
[2020-05-29 07:52] LABS: BASOPHILS 0.4 % (0-2); EOSINOPHILS 5.2 % (0-7); HEMATOCRIT 46.2 % (42.0-54.0); HEMOGLOBIN 15.4 g/dL (13.5-17.5); IMMATURE GRANULOCYTES 0.2 % (0-5); LYMPHOCYTES 27.3 % (15-50); MCH 29.1 pg (26.0-34.0); MCHC 33.3 g/dL (31.0-37.0); MCV 87.3 fL (80.0-100.0); MEAN PLATELET VOLUME 8.9 fL (7.4-10.4); MONOCYTES 10.4 % (2-11); NEUTROPHILS 56.5 % (40-80); PLATELET COUNT 154 10x3/uL (130-400); RBC 5.29 10x6/uL (4.20-6.10); RDW 13.9 % (11.5-14.5); WBC 5.2 10x3/uL (4.8-10.8)
--- NOTE | 2020-05-29 09:30 | NUR ---
PT REC'D TO ROOM 7 VIA STRETCHER FROM PROPERTY MANAGER. MONITORS ESTAB. AT BS. SEE [employer]INCHILLA FARMER. ALARMS ON AND C/L IN REACH.
--- NOTE | 2020-05-29 09:45 | NUR ---
R GROIN SITE SOFT, NO S/S BLEEDING OR HEMATOMA. PULSES PALP, FEET WARM. VSS. PT RESTING QUIETLY, CM - SB WHILE ASLEEP. AT BS. C/L IN REACH.
--- NOTE | 2020-05-29 10:15 | NUR ---
R GROIN SITE SOFT, C/D/I, NO S/S BLEEDING OR HEMATOMA. PULSES PALP. VSS, PT DENIES PAIN OR NEEDS.
--- NOTE | 2020-05-29 10:30 | NUR ---
R GROIN SITE SOFT, C/D/I. NO S/S BLEEDING OR HEMATOMA. PULSES PALP. PT RESTING QUIETLY, AT BS. VSS. C/L IN REACH.
--- NOTE | 2020-05-29 11:00 | NUR ---
R GROIN SITE SOFT, C/D/I. HOB ELEVATED GRADUALLY AND PT GIVEN COFFEE PER REQUEST. VSS. C/L IN REACH.
--- NOTE | 2020-05-29 11:05 | NUR ---
DR. GARCÍA IN TO UPDATE PT AND HIS .
--- NOTE | 2020-05-29 11:15 | NUR ---
R GROIN SITE SOFT, NO S/S BLEEDING OR HEMATOMA. PULSES PALP. PT GIVEN SANDWICH TRAY AND FRESH WATER. VSS. C/L IN REACH.
--- NOTE | 2020-05-29 11:30 | NUR ---
R GROIN SITE SOFT, C/D/I. PIV D/C'D INTACT, DSG APPLIED.
--- NOTE | 2020-05-29 11:38 | NUR ---
ALL DISCHARGE INSTRUCTIONS REVIEWED WITH PT AND HIS , INCLUDING RESTRICTIONS, MEDICATIONS, AND F/U APPT. PT UP TO GET DRESSED AND GO TO BR INDEPENDENTLY. ASSISTING.
--- NOTE | 2020-05-29 11:45 | NUR ---
PT D/C'D VIA TO PRIVATE VEHICLE WITH . PT HAS ALL BELONGINGS AND PAPER WORK.
== END 2020-05-29 11:45 | disposition home or self-care (01) ==
LOC: D.CATH 05:55 → EDSTATUS 08:30 → D.CATH 08:30
PROVIDERS: ATTEND Internal Medicine Cardiovascular Disease
DX: I25.119 Atherosclerotic heart disease of native coronary artery with unspecified angina pectoris (principal); R94.39 Abnormal result of other cardiovascular function study; I10 Essential (primary) hypertension; I48.91 Unspecified atrial fibrillation